=== PATIENT | female | born 1960 | race Caucasian/White ===

== ENCOUNTER 2016-11-28 08:38 | Emergency (ER) | payer BC, OTHER ==
[~2016-11-28] VITALS: Ht 157.5 cm; Wt 65.3 kg
[2016-11-28 08:45] VITALS: BP 154/85
== END 2016-11-28 10:28 | disposition home or self-care (01) ==
LOC: ED 10:27
DX: S33.5XXA Sprain of ligaments of lumbar spine, initial encounter (principal); M47.894 Other spondylosis, thoracic region; V43.52XA Car driver injured in collision with other type car in traffic accident, initial encounter; Y93.89 Activity, other specified; Y99.8 Other external cause status; Y92.410 Unspecified street and highway as the place of occurrence of the external cause
CPT/HCPCS: 72110; 99284

== ENCOUNTER 2017-03-16 08:37 | Emergency (ER) | payer MEDICAID, OTHER ==
[~2017-03-16] VITALS: Ht 157.5 cm; Wt 64.5 kg
[2017-03-16 08:39] VITALS: BP 171/90
== END 2017-03-16 09:27 | disposition home or self-care (01) ==
LOC: ED 08:53
DX: B37.9 Candidiasis, unspecified (principal)
CPT/HCPCS: 99283

== ENCOUNTER 2017-09-10 07:50 | Day surgery (SDC) | payer OTHER ==
[~2017-09-10] VITALS: Ht 157.5 cm; Wt 62.2 kg
[~2017-09-10 07:50] MED LIST: EPINEPHRINE 1 MG/ML, 1ML ONE; LIDOCAINE/PF 1%, 30ML ONE
[2017-09-10] MEDS ORDERED: LACTATED RINGERS 1,000 ML IV SCH (08:17)
[2017-09-10 08:28] VITALS: BP 162/98
[2017-09-10] MEDS ORDERED: GABAPENTIN 300 MG CAPSULE PO ONE (08:30)
[2017-09-10] MEDS ORDERED: ONDANSETRON ODT 8 MG PO ONE (08:30)
[2017-09-10] MEDS ORDERED: ACETAMINOPHEN 500 MG TABLET PO ONE (08:30)
[2017-09-10 08:40] VITALS: BP 162/98
[2017-09-10] MEDS ORDERED: OMEP20TA62 PO (08:45)
[2017-09-10] MEDS ORDERED: FLUO10CA7 PO (08:45)
[2017-09-10] MEDS ORDERED: EPHEDRINE 50 MG/ML, 1ML IM PRN (09:30)
[2017-09-10] MEDS ORDERED: ALBUTEROL/IPRATROPIUM 2.5MG/0.5MG, 3 ML NPPB PRN (09:30)
[2017-09-10] MEDS ORDERED: MORPHINE SULFATE 4 MG/ML, 1ML IVPush PRN (09:30)
[2017-09-10] MEDS ORDERED: PROMETHAZINE 25 MG/ML, 1ML IV PRN (09:30)
[2017-09-10] MEDS ORDERED: DIPHENHYDRAMINE 50 MG/ML, 1ML IVPush PRN (09:30)
[2017-09-10] MEDS ORDERED: MEPERIDINE/PF 25MG/0.5ML IVPush PRN (09:30)
[2017-09-10] MEDS ORDERED: FENTANYL PF 100 MCG/2ML IV PRN (09:30)
[2017-09-10] MEDS ORDERED: LABETALOL 5MG/ML, 20ML IV PRN (09:30)
[2017-09-10] MEDS ORDERED: OXYcodone 5 MG/5 ML ORAL.SOL UDC PO PRN (09:30)
[2017-09-10] MEDS ORDERED: SCOPOLAMINE PATCH, 1.5MG PATCH.TD72 TD PRN (09:30)
[2017-09-10] MEDS ORDERED: MIDAZOLAM 1 MG/ML, 2ML IV PRN (09:30)
[2017-09-10] MEDS ORDERED: FENTANYL PF 100 MCG/2ML ONE (09:31)
[2017-09-10] MEDS ORDERED: MIDAZOLAM 1 MG/ML, 2ML ONE (09:31)
[2017-09-10] MEDS ORDERED: SUCCINYLCHOLINE 20 MG/ML, 10ML ONE (10:07)
[2017-09-10] MEDS ORDERED: PROPOFOL 10 MG/ML, 20ML ONE (10:26)
[2017-09-10] MEDS ORDERED: DEXAMETHASONE 4 MG/ML, 1ML ONE (10:26)
[2017-09-10] MEDS ORDERED: CEFAZOLIN 1,000 MG ONE (10:26)
== END 2017-09-10 12:15 ==
LOC: OUT 07:50
PROVIDERS: ATTEND Otolaryngology
DX: C01 Malignant neoplasm of base of tongue (principal); K21.9 Gastro-esophageal reflux disease without esophagitis
CPT/HCPCS: 31536; 88305; J0330; J0690; J1100; J2250; J2704; J3010; J7120; Q0162; J0171; J3490

== ENCOUNTER → 2017-10-15 | Outpatient (CLI) | payer OTHER ==
[~2017-10-15] MED LIST changes: -EPINEPHRINE 1 MG/ML, 1ML ONE; +FLUO10CA7 PO; -LIDOCAINE/PF 1%, 30ML ONE; +OMEP20TA62 PO
== END | disposition home or self-care (01) ==
LOC: PETCFH 08:20
PROVIDERS: ATTEND Specialist
DX: K14.8 Other diseases of tongue (principal); C53.9 Malignant neoplasm of cervix uteri, unspecified; C09.9 Malignant neoplasm of tonsil, unspecified
CPT/HCPCS: 78815; A9552